=== PATIENT | male | born 1995 | race Caucasian/White ===

== ENCOUNTER 2019-12-19 12:33 | Emergency (ER) | payer OTHER, SELFPAY ==
[2019-12-19] MEDS ORDERED: Ondansetron ODT 4 MG TAB ONE (13:17)
[2019-12-20 15:03] LABS: SARS-CoV-2 MS2 Positive; SARS-CoV-2 N Gene Negative; SARS-CoV-2 S Gene Negative; SARS-CoV-2 orf1ab Negative
== END 2019-12-19 13:35 | disposition home or self-care (01) ==
LOC: BURERS 12:33
DX: J02.9 Acute pharyngitis, unspecified (principal); B34.9 Viral infection, unspecified; Z20.828 Contact with and (suspected) exposure to other viral communicable diseases
CPT/HCPCS: 87635; 99283; Q0162; U0003

== ENCOUNTER 2020-05-28 11:30 | Emergency (ER) | payer SELFPAY ==
[2020-05-28] MEDS ORDERED: Lidocaine 1% PF 5 ML VIAL ONE (11:44)
[2020-05-28] MEDS ORDERED: Bacitracin 1 PK ONE (11:44)
[2020-05-28] MEDS ORDERED: Boostrix 0.5 ML (Tdap) VIAL ONE (12:02)
== END 2020-05-28 12:12 | disposition home or self-care (01) ==
LOC: BURERS 11:30
DX: S61.214A Laceration without foreign body of right ring finger without damage to nail, initial encounter (principal); W25.XXXA Contact with sharp glass, initial encounter
CPT/HCPCS: 12001; 90471; 90715

== ENCOUNTER 2021-10-22 07:29 | Emergency (ER) | payer SELFPAY | END 2021-10-22 08:03 | disposition home or self-care (01) | LOC: BURERS 07:29 | DX: L55.1 Sunburn of second degree (principal); L01.00 Impetigo, unspecified | CPT/HCPCS: 99282 ==

== ENCOUNTER 2022-12-21 15:31 | Emergency (ER) | payer SELFPAY | END 2022-12-21 16:13 | disposition home or self-care (01) | LOC: BURERS 15:31 | DX: R04.0 Epistaxis (principal); I10 Essential (primary) hypertension | CPT/HCPCS: 99283 ==